=== PATIENT | male | born 1935 | race Native Hawaiian/Other Pacific Islander ===

== ENCOUNTER 2020-08-26 09:35 | Inpatient (IN) | payer OTHER ==
[2020-08-26] VITALS (7 sets, daily range): BP systolic 106–161; BP diastolic 53–93; TEMP 96.7–98.3; Ht 185.4 cm; Wt 66.8 kg
[~2020-08-26] VITALS: Ht 185.4 cm; Wt 66.8 kg
[~2020-08-26 09:35] MED LIST: ACET-206 PO; AMLODIPINE BESYLATE PO; ASCO500T18 PO; CHOL100034 PO; ENOXAPARIN40 MG/0.1 SC; ESCI10TA PO; IPRAAER INH; LEVOFLOXACIN750 MG PO; MAGNSUS68 PO; MEMA5TAB PO; ONDA4TAB3 PO; PULMICORT180 MCG/AC INH; REMERON 15MG TAB PO; ZINC220C4 PO
[2020-08-27] VITALS (20 sets, daily range): BP systolic 95–1135; BP diastolic 54–110; TEMP 97–98.6
[2020-08-27 03:40] LABS: PLATELET COUNT 165 K/uL (142-355)
[2020-08-27 04:43] LABS: POTASSIUM 3.6 mmol/L (3.6-5.2)
[2020-08-28 04:00] VITALS: BP 176/45; TEMP 98
[2020-08-28 04:26] LABS: PLATELET COUNT 182 K/uL (142-355)
[2020-08-28 05:02] LABS: POTASSIUM 4.3 mmol/L (3.6-5.2)
[2020-08-28 08:00] VITALS: BP 129/68; TEMP 97.6
[2020-08-28 12:00] VITALS: BP 148/92; TEMP 98
[2020-08-28 16:00] VITALS: BP 123/86; TEMP 98.3
[2020-08-28 20:00] VITALS: BP 144/82; TEMP 96.7
[2020-08-29] VITALS: BP 144/69; TEMP 96.7
[2020-08-29 04:00] VITALS: BP 140/90; TEMP 96.7
[2020-08-29 05:56] LABS: PLATELET COUNT 171 K/uL (142-355)
[2020-08-29 06:16] LABS: POTASSIUM 3.9 mmol/L (3.6-5.2)
[2020-08-29 08:00] VITALS: BP 150/60; TEMP 97.4
[2020-08-29 12:00] VITALS: BP 106/51; TEMP 98.2
[2020-08-29 16:00] VITALS: BP 123/86; TEMP 98.3
[2020-08-29 20:00] VITALS: BP 131/77; TEMP 97.9
[2020-08-30 00:22] VITALS: BP 163/84; TEMP 98.7
[2020-08-30 04:16] VITALS: BP 126/56; TEMP 97.6
[2020-08-30 05:25] LABS: PLATELET COUNT 173 K/uL (142-355)
[2020-08-30 08:00] VITALS: BP 132/69; TEMP 98
[2020-08-30 12:00] VITALS: BP 137/51; TEMP 97.4
[2020-08-30 16:00] VITALS: BP 127/72; TEMP 97.5
[2020-08-30 20:23] VITALS: BP 113/59; TEMP 97.5
[2020-08-31 00:15] VITALS: BP 128/57; TEMP 97.1
[2020-08-31 04:00] VITALS: BP 172/74; TEMP 97.4
[2020-08-31 05:56] LABS: PLATELET COUNT 182 K/uL (142-355)
[2020-08-31 06:23] LABS: POTASSIUM 4.8 mmol/L (3.6-5.2)
[2020-08-31 08:00] VITALS: BP 134/100; TEMP 96.7
[2020-08-31 12:00] VITALS: BP 167/83; TEMP 97.4
[2020-08-31 16:00] VITALS: BP 138/77; TEMP 97.7
[2020-08-31 20:00] VITALS: BP 138/77; TEMP 97.8
[2020-09-01] VITALS: BP 147/54; TEMP 97.6
[2020-09-01 04:00] VITALS: BP 159/69; TEMP 97.2
[2020-09-01 08:00] VITALS: BP 147/89; TEMP 98
[2020-09-01 08:16] LABS: PLATELET COUNT 174 K/uL (142-355)
[2020-09-01 08:33] LABS: POTASSIUM 4.4 mmol/L (3.6-5.2)
[2020-09-01 12:00] VITALS: BP 141/86; TEMP 97.5
[2020-09-01 16:00] VITALS: BP 144/88; TEMP 98
[2020-09-01 20:23] VITALS: BP 114/90; TEMP 97.1
[2020-09-02] VITALS (7 sets, daily range): BP systolic 119–156; BP diastolic 30–79; TEMP 97.3–98.8
[2020-09-02 05:05] LABS: PLATELET COUNT 162 K/uL (142-355)
[2020-09-02 05:23] LABS: POTASSIUM 4.7 mmol/L (3.6-5.2)
[2020-09-03] VITALS: BP 156/63; TEMP 98.8
[2020-09-03 04:21] VITALS: BP 146/61; TEMP 96.5
[2020-09-03 05:40] LABS: PLATELET COUNT 166 K/uL (142-355)
[2020-09-03 06:07] LABS: POTASSIUM 4.9 mmol/L (3.6-5.2)
[2020-09-03 08:00] VITALS: BP 144/48; TEMP 97.9
[2020-09-03 12:00] VITALS: BP 153/44; TEMP 98.7
[2020-09-03 16:00] VITALS: BP 153/64; TEMP 98.2
[2020-09-03 20:00] VITALS: BP 139/73; TEMP 97.6
[2020-09-04 00:02] VITALS: BP 120/51; TEMP 99.1
[2020-09-04 03:57] VITALS: BP 180/78; TEMP 98.5
[2020-09-04 04:36] LABS: POTASSIUM 4.7 mmol/L (3.6-5.2)
[2020-09-04 05:01] LABS: PLATELET COUNT 141 K/uL (142-355)
[2020-09-04 08:00] VITALS: BP 150/74; TEMP 97.1
[2020-09-04 12:00] VITALS: BP 128/64; TEMP 98.3
[2020-09-04 20:00] VITALS: BP 142/68; TEMP 98.9
[2020-09-05 05:50] LABS: PLATELET COUNT 166 K/uL (142-355)
[2020-09-05 06:11] LABS: POTASSIUM 5.3 mmol/L (3.6-5.2)
[2020-09-05 07:53] VITALS: BP 159/82; TEMP 98.2
[2020-09-05 19:51] VITALS: BP 145/35; TEMP 97.7
[2020-09-06 05:37] LABS: PLATELET COUNT 200 K/uL (142-355)
[2020-09-06 05:59] LABS: POTASSIUM 4.9 mmol/L (3.6-5.2)
[2020-09-06 08:00] VITALS: BP 162/75; TEMP 97.5
[2020-09-06 20:00] VITALS: BP 166/93; TEMP 98.3
[2020-09-07 05:33] LABS: PLATELET COUNT 243 K/uL (142-355)
[2020-09-07 05:50] LABS: POTASSIUM 4.6 mmol/L (3.6-5.2)
[2020-09-07 08:00] VITALS: BP 160/65; TEMP 99.1
[2020-09-07 20:00] VITALS: BP 174/70; TEMP 98.9
[2020-09-08 04:52] LABS: PLATELET COUNT 220 K/uL (142-355)
[2020-09-08 05:17] LABS: POTASSIUM 4.7 mmol/L (3.6-5.2)
[2020-09-08 08:00] VITALS: BP 232/91; TEMP 99
== END 2020-09-08 15:00 | disposition short-term general hospital (02) | DRG 177 ==
LOC: ICU 09:35 → MED/SURG 08-27 19:18
PROVIDERS: Internal Medicine Endocrinology, Diabetes & Metabolism; ADMIT Internal Medicine; ATTEND Internal Medicine
DX: U07.1 COVID-19 (principal); J96.01 Acute respiratory failure with hypoxia; J15.212 Pneumonia due to Methicillin resistant Staphylococcus aureus; N18.4 Chronic kidney disease, stage 4 (severe); N17.8 Other acute kidney failure; I48.91 Unspecified atrial fibrillation; Z79.01 Long term (current) use of anticoagulants; I95.89 Other hypotension; I12.9 Hypertensive chronic kidney disease with stage 1 through stage 4 chronic kidney disease, or unspecified chronic kidney disease
CPT/HCPCS: 36415; 36600; 80053; 80202; 82805; 83605; 84443; 85027; 87070; 87077; 87185; 87186; 87205; 87635; 93005; 94667; 94760; J0132; J0360; J0456; J0696; J1100; J1650; J1956; J2060; J2270; J2920; J3370; J3490; U0003

== ENCOUNTER 2020-09-08 15:00 | Inpatient (IN) | payer OTHER ==
[~2020-09-08] VITALS: Ht 185.4 cm; Wt 62.9 kg
[2020-09-08 18:24] VITALS: BP 232/91; TEMP 99; Ht 185.4 cm; Wt 62.9 kg
[2020-09-08 20:00] VITALS: BP 183/77; TEMP 96.7
[2020-09-09 20:00] VITALS: BP 130/83; TEMP 97.6
[2020-09-10 08:00] VITALS: BP 156/84; TEMP 98.4
[2020-09-10 20:00] VITALS: BP 173/96; TEMP 98.6
[2020-09-11 08:00] VITALS: BP 133/83; TEMP 102.7
[2020-09-11 20:00] VITALS: BP 142/95; TEMP 98.9
== END 2020-09-12 07:55 | disposition expired | DRG 177 ==
LOC: MED/SURG 15:00
PROVIDERS: ADMIT Internal Medicine; ATTEND Internal Medicine
DX: U07.1 COVID-19 (principal); J18.8 Other pneumonia, unspecified organism
CPT/HCPCS: 94760; J2060; J2270